=== PATIENT | female | born 1970 | race African-American/Black ===

== ENCOUNTER 2017-06-02 11:04 | Observation (INO) ==
[2017-06-02] MEDS ORDERED: NITROGLYCERIN 2% OINT 1 INCH/GM PACK TOP STA (11:58)
[2017-06-02] MEDS ORDERED: MORPHINE 2 MG/1 ML SYRINGE IV STA (11:58)
[2017-06-02] MEDS ORDERED: METOPROLOL TARTRATE 25 MG TABLET PO STA (11:58)
[2017-06-02] MEDS ORDERED: ONDANSETRON 4 MG/2 ML VIAL IV STA (11:58)
[2017-06-02] MEDS ORDERED: ALUM/MAG/SIMETH/LIDO VISC 1:1 30 ML BOTTLE PO STA (11:58)
[2017-06-02] MEDS ORDERED: ASPIRIN 325 MG TABLET PO STA (11:58)
--- NOTE | 2017-06-02 12:02 | EKG Report ---
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
--- NOTE | 2017-06-02 12:21 | XRay Report ---
XR chest 1V portable Indication: Chest pain Comparison: 26 March 2015 Findings: The heart and mediastinum are normal in size and configuration. The pulmonary vascularity is normal in caliber. No lung infiltrates, effusions, pneumothorax or other abnormality is demonstrated. Impression: No acute cardiopulmonary disease. PROCEDURE INTERPRETED AT [facility] DEPARTMENT OF RADIOLOGY Final Report Signed by: Dr. Sukhjinder Tinoco
--- NOTE | 2017-06-02 12:31 | CT Report ---
CT of the brain without contrast. Indication: Headache. Comparison: CT of the facial bones dated February 11, 2013. There is a mild partial empty sella. The ventricles are normal in size and configuration. There is no mass effect, midline shift, or area of hemorrhage. No cortical infarct is seen. There is a 7 mm fatty density within the right ambient cistern, having Hounsfield units of -65. Review of the previous CT of the facial bones shows this lesion to be present at that time, and has not changed in size, location, or contour. This is most consistent with a lipoma. Ruptured dermoid would not be expected to be in the exact same location and Hounsfield units of 10 to be higher than this. There is a 4 mm cystic lesion in the pineal gland. The calvarium is intact. 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 The mastoid air cells are clear. Impression: 1. 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 2. 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 The CT exam was performed using one or more of the following dose reduction techniques: Automated exposure control, adjustment of the mA and/or kV according to patient size, or use of iterative reconstruction technique. PROCEDURE INTERPRETED AT [facility] DEPARTMENT OF RADIOLOGY Final Report Signed by: Dr. Joy Benavidez
[2017-06-02 12:33] LABS: Basophils # 0.1 10*3/uL (0.0-0.2); Eosinophils # 0.2 10*3/uL (0.0-0.87); Eosinophils % 2.3 % (0.00-10.9); Hematocrit 39.2 VOL% (35.7-47.0); Hemoglobin 13.1 GM/DL (12.0-16.0); Immature Granulocytes % 0.3 %; Immature Granulocytes Absolute 0.02 #; Lymphocytes # 1.9 10*3/uL (1.4-4.0); Lymphocytes % 25.8 % (21.3-54.2); Mean Corpuscular HGB Conc 33.4 GM/DL (32-36); Mean Corpuscular Hemoglobin 29 PG (27-34); Mean Corpuscular Volume 87.1 FL (87-102); Mean Platelet Volume 9.8 FL (9.6-12.0); Monocytes # 0.6 10*3/uL (0.11-0.8); Monocytes % 8.3 % (1.7-12.7); Neutrophils # 4.5 10*3/uL (1.4-7.4); Neutrophils % 62.3 % (38.7-73.9); Platelet Count 379 T/CUMM (130-400); Red Cell Distribution Width 13.7 % (9.3-17.3); White Blood Count 7.2 T/CUMM (4-12)
[2017-06-02 12:41] LABS: Apearance,Urine CLOUDY (Clear); Bacteria,Urine Many /HPF (Few); Bilirubin,Urine Negative (Negative); Blood, Urine Small mg/dL (Negative); Glucose,Urine (UA) 50 mg/dL (Negative); Ketones,Urine Negative (Negative); Mucus,Urine Many /LPF (Occasional); Nitrite,Urine Positive (Negative); Protein,Urine Negative; RBC,Urine 8 /HPF (0-4); Squamous Epithelial Cell,Urine Occasional /HPF (0-10); Urine Color Yellow (Yellow); Urine Specific Gravity 1.018 (1.001-1.035); Urine Urobilinogen < 2.0 EU/DL (0.2-1.0); WBC,Urine 90 /HPF (0-6)
[2017-06-02] MEDS ORDERED: ONDANSETRON 4 MG/2 ML VIAL ONE (12:48)
[2017-06-02] MEDS ORDERED: NITROGLYCERIN 2% OINT 1 INCH/GM PACK TOP ONE (12:48)
[2017-06-02] MEDS ORDERED: ALUM/MAG/SIMETH/LIDO VISC 1:1 30 ML BOTTLE PO ONE (12:48)
[2017-06-02] MEDS ORDERED: ASPIRIN 325 MG TABLET ONE (12:48)
[2017-06-02] MEDS ORDERED: MORPHINE 2 MG/1 ML SYRINGE ONE (12:48)
[2017-06-02 13:12] LABS: Alanine Aminotransferase 22 U/L (13-56); Albumin 3.2 G/DL (3.4-5.0); Alkaline Phosphatase 107 U/L (45-117); Aspartate Amino Transferase 13 U/L (0-37); Bilirubin,Total < 0.39 MG/DL (0.2-1.0); Blood Urea Nitrogen 13 MG/DL (7-18); Glucose 211 MG/DL (74-106); Magnesium 1.5 MG/DL (1.8-2.4); Osmolality,Calculated 278.8 MOS/KG (273-304); Potassium 3.7 MMOL/L (3.5-5.1); Sodium 137 MMOL/L (136-145); Total Protein 7.6 G/DL (6.4-8.3)
[2017-06-02] MEDS ORDERED: cefTRIAXone 1,000 MG in SODIUM CHLORIDE 0.9% 100 ML IV STA (13:24)
[2017-06-02] MEDS ORDERED: MAGNESIUM SULF RIDER 2 GM in PREMIX 1 EACH IV STA (13:24)
--- NOTE | 2017-06-02 13:31 | Emergency Department Note ---
Jg Shoemaker Manpreet, am scribing for, and in the presence of, Al Rodas MD 11:46. Clark Shoemaker Charles R, MD, personally performed the services described in this documentation, ascribed by Chris Gregorio in my presence, and it is both accurate and complete 331 . Arrival - Arrival Chief Complaint: Chest Pain Stated Complaint: HEADACHE, BP HIGH. RT ARM PAIN RADIATING TO CHEST ED Nursing Triage Note: GAMEZ with right arm pain with radiation to chest onset x 1 month - pt states that she has been having elevated blood pressure at home Mode of Arrival: Ambulatory Limitations: No Limitations Source: Patient - History of Present Illness HPI Narrative: Pt is a 46 y/o female, with PMHx of HTN and NIDDM, who presents to the ED with CC of GAMEZ, right arm pain radiating to her chest onset 1 month. Pt also c/o elevated B/P lately. Pt states she checks her B/P when she is having GAMEZ which is usually high. Pt initially thought her arm pain was due to pulling a muscle. Pt states she called her this AM and told to come to the ED. Pt also reports of getting dizzy and tired. No other pains/complaints reported to the ED. Onset (ago): month(s) (1 month) Consistency: constant Severity: moderate Severity scale (1-10): 3 Date of Last Menstrual Period: 2 weeks Allergies/Adverse Reactions: Allergies Allergy/AdvReac Type Severity Reaction Status Date / Time No Known Allergies Allergy Verified 02/25/17 20:44 Home Medications: Home Medications Medication Instructions Recorded Confirmed Type Lisinopril 20 mg PO DAILY 03/26/15 02/25/17 History metFORMIN [Glucophage] 1,000 mg PO BID W/MEALS 02/25/17 02/25/17 History Review of System - Review of System 12 point system: reviewed and no additional remarkable complaints except as stated - Review of System Constitutional: Absent: chills, diaphoresis, fever Respiratory: Absent: cough, respiratory distress, wheezing Cardiovascular: Present: chest pain Gastrointestinal: Absent: abdominal pain, nausea, vomiting, diarrhea Genitourinary female: Absent: dysuria Musculoskeletal: Present: arm pain (Right arm pain). Absent: back pain Neurological: Present: headache Medical,Surgical,& Family Hx - Medical History Cardio: History of: Hypertension Endocrine: History of: Diabetes Mellitus (NIDDM) No history of: Diabetes Mellitus (IDDM) Respiratory: No history of: Asthma, Pneumonia Renal: No history of: Renal Failure, Renal Problems Gastrointestinal: No history of: Gastrointestinal Bleed, Liver Problems, GI Problems - Surgical History Abdominal Surgeries: Surgical HX of: Cholecystectomy Reproductive Surgeries: Surgical HX of;: Tubal Ligation - Family History Family History: Reports;: Family Diabetes (mother), Family Heart Disease (mother ), Family Hypertension (mother), Family Stroke (maternal grandmother) - Social History Smoking Status: Never smoker Frequency of Alcohol Use: None Type of Drug Use: None Exam Vital Signs: Vital Signs Temperature 98.1 F 06/02/17 11:10 Pulse Rate 67 06/02/17 11:34 Respiratory Rate 16 06/02/17 11:34 Blood Pressure 153/96 06/02/17 11:34 O2 Sat by Pulse Oximetry 99 06/02/17 11:34 - General General appearance: alert, in no apparent distress - Head Head exam: Present: atraumatic, normocephalic, normal inspection - Eye Eye exam: Present: normal appearance, PERRL, EOMI - ENT ENT exam: Present: normal exam, normal oropharynx, mucous membranes moist, TM's normal bilaterally - Neck Neck exam: Present: normal inspection, full ROM, trachea midline. Absent: thyromegaly - Chest Chest inspection: Present: normal inspection, symmetric chest wall rise. Absent : tenderness - Respiratory Respiratory exam: Present: normal lung sounds bilaterally. Absent: accessory muscle use, respiratory distress - Cardiovascular Cardiovascular exam: Present: regular rate, normal rhythm, normal heart sounds. Absent: murmur, rubs, gallop, clicks - Abdominal Exam Abdominal exam: Present: soft, normal bowel sounds. Absent: distention, tenderness, guarding - Extremities Exam Extremities exam: Present: normal inspection, full ROM. Absent: tenderness - Back Exam Back exam: Present: normal inspection, full ROM. Absent: tenderness - Neurological Exam Neurological exam: Present: alert, oriented X3, CN II-XII intact, reflexes normal - Psychiatric Psychiatric exam: Present: normal affect, normal mood - Skin Skin exam: Present: warm, dry, intact, normal color. Absent: pallor Course - Consultations Consultation #1: Hospitalist will admit patient Time: 13:28 Results - Labs CBC & BMP: 06/02/17 12:24 06/02/17 12:24 Lab Results: I have reviewed the patients labs Labs: Laboratory Tests 06/02/17 06/02/17 11:58 12:24 WBC 7.2 RBC 4.50 Hgb 13.1 Hct 39.2 MCV 87.1 MCH 29 MCHC 33.4 RDW 13.7 Plt Count 379 Baso % (Auto) 1.0 H Urine Color Yellow Urine Appearance Cloudy Urine pH 5.0 Ur Specific [place] 1.018 Urine Protein Negative Urine Glucose (UA) 50 Urine Ketones Negative Urine Blood Small Urine Nitrate Positive H Urine Bilirubin Negative Urine Urobilinogen < 2.0 H Urine Leukocytes Large H Urine RBC 8 Urine WBC 90 Urine WBC Clumps Few Ur Squamous Epith Cells Occasional Urine Bacteria Many Urine Mucus Many Ur Culture Indicated? Results to follow Laboratory Tests 06/02/17 12:24 Sodium 137 Potassium 3.7 Chloride 105 Carbon Dioxide 25 Anion Gap 10.7 GFR Calculation 105 Glucose 211 H Magnesium 1.5 L AST 13 Albumin 3.2 L Globulin 4.4 H Albumin/Globulin Ratio 0.7 L - Diagnostic Findings Procedure: Chest x-ray: report reviewed by me ("Chest X-ray: No acute cardiopulmonary disease."), CT: report reviewed by me ("CT Brain w/o con: 1. 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 2. Small cystic lesion within the pineal glad, pineal cystversus pineocytoma.") Disposition Clinical Impression: Chest pain, UTI (urinary tract infection), Headache, Hypomagnesemia, Essential hypertension Case discussed with: patient Disposition: Still a Patient Condition: Stable Time of Disposition: 13:28
[2017-06-02] MEDS ORDERED: cefTRIAXone 1,000 MG VIAL ONE (13:40)
--- NOTE | 2017-06-02 14:06 | Hospitalist History & Physical ---
Assessment and Plan - Time spent with patient Time spent with patient: Greater than 30 minutes (1) Chest pain Status: Acute Assessment and plan: Admit 06/02/17 - Tele Bed Increased BP; slight change in Troponin 0.021 Serial Troponin Serial EKG Will discuss with Dr Garrido for further recommendations with care. Current Visit: Yes (2) Essential hypertension Status: Acute Current Visit: Yes (3) UTI (urinary tract infection) Status: Acute Current Visit: Yes History of Present Illness Chief complaint: right arm and chest pain History of present illness: Ms. Valenzuela is a 46 year old black female presented to the ED for further evaluation of right arm pain that radiates to her right side chest and center with onset of 1 month ago and increased BP and increasing Fatigue x 1 week. She reports occasional dizziness. She denies nausea, vomiting, shortness of breath, fever, or chills. She denies pulling on anything or injuring arm/ shoulder. She denies reflux disease. IN ED: H&H WNL; Electrolytes WNL; Glucose 211, Magnesium 1.5, Troponin 0.021. Urinalysis positive for infection. CXR: nothing acute. Head CT: small cystic lesion within the pineal gland, pineal cyst vs pineocytoma; fatty density lesion in RT ambient cistern dating 2012,most likely lipoma. EKG reviewed by MD in ED; normal sinus rhythm. Denies smoking, alcohol use, or drug use. SURGHx: tubal ligation and cholecystectomy. 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 Home Medications Medication Instructions Recorded Confirmed Type metFORMIN [Glucophage] 1,000 mg PO BID W/MEALS 02/25/17 02/25/17 History Glimepiride [Glimepiride] 2 mg PO QAM 06/02/17 06/02/17 History Lisinopril/Hydrochlorothiazide 1 each PO QAM 06/02/17 06/02/17 History [Lisinopril-Hctz 20-12.5 mg Tab] Allergies Allergy/AdvReac Type Severity Reaction Status Date / Time No Known Allergies Allergy Verified 02/25/17 20:44 Medical,Surgical,& Family Hx - Medical History Cardio: History of: Hypertension Endocrine: History of: Diabetes Mellitus (NIDDM) No history of: Diabetes Mellitus (IDDM) Respiratory: No history of: Asthma, Pneumonia Renal: No history of: Renal Failure, Renal Problems Gastrointestinal: No history of: Gastrointestinal Bleed, Liver Problems, GI Problems - Surgical History Abdominal Surgeries: Surgical HX of: Cholecystectomy Reproductive Surgeries: Surgical HX of;: Tubal Ligation - Family History Family History: Reports;: Family Diabetes (mother), Family Heart Disease (mother ), Family Hypertension (mother), Family Stroke (maternal grandmother) - Social History Smoking Status: Never smoker Frequency of Alcohol Use: None Type of Drug Use: None Lives With:: Children (her son lives with her) Functional capacity: independent ambulation 12 point system: reviewed and no additional remarkable complaints except as stated - Constitutional Constitutional: Present: fatigue. Absent: chills, fever(s) - Cardiovascular Cardiovascular: Present: chest pain at rest, chest pain with activity. Absent: diaphoresis, dyspnea, dyspnea on exertion, edema - Respiratory Respiratory: Absent: cough, dyspnea, dyspnea on exertion Exam - Constitutional Vitals: Period Temp Pulse Resp BP Sys/Milligan Pulse Ox Last 24 Hr 98.1 F-98.1 F 67-73 16-20 130-166/80-109 98-100 General appearance: normal weight, no acute distress - Head Head exam: Present: normal inspection, normocephalic - Eye Eye exam: Present: EOMI Pupils: Present: JOSH - Neck Neck exam: Present: normal inspection. Absent: thyromegaly - Respiratory Respiratory exam: Present: clear to auscultation bilaterally. Absent: rhonchi, stridor, wheezes - Cardiovascular Cardiovascular exam: Present: regular rate and rhythm - GI/Abdominal GI/Abdominal exam: Present: normal bowel sounds, soft. Absent: tenderness, rebound - Extremities Exam Extremities exam: Present: normal inspection, full ROM. Absent: edema - Neurological Exam Neurological exam: Present: alert, oriented X3, CN II-XII intact - Psychiatric Psychiatric exam: Present: normal affect, normal mood. 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
[2017-06-02] MEDS ORDERED: ACETAMINOPHEN 325 MG TABLET PO PRN (14:23)
[2017-06-02] MEDS ORDERED: ONDANSETRON 4 MG/2 ML VIAL IV PRN (14:23)
[2017-06-02] MEDS ORDERED: GLUCAGON 1 MG VIAL IM PRN ×2 (14:23→16:19)
[2017-06-02] MEDS ORDERED: DEXTROSE 50% 25 GM/50 ML SYRINGE IV PRN ×2 (14:23→16:19)
--- NOTE | 2017-06-02 15:05 | EKG Report ---
Stationary ECG Study [facility] Test Date: 06/02/2017 3:03:57 PM Pat Name: ESTEVAN CANDELARIO Department: Room: 262 Gender: F Nematologist: KEVIN : 1970 Requested by: Al Sanders Order Number: [id number] Nixon MD: BERKLEY MARINO Intervals [place] Rate: 66 P: 49 [place]: 160 QRS: -16 QRSD: 96 T: 9 QT: 402 QTc: 415 Interpretive Statements SINUS RHYTHM MINIMAL VOLTAGE CRITERIA FOR LVH, CONSIDER NORMAL VARIANT Electronically Signed On 06-04-17 18:01:49 CDT by BERKLEY MARINO [email or web address]
[2017-06-02] MEDS: ENOXAPARIN 40 MG/0.4 ML SYRINGE SUBCUT SCH (15:52)
--- NOTE | 2017-06-02 16:08 | Cardiology Consult Note ---
Assessment and Plan - Time spent with patient Time spent with patient: Greater than 30 minutes (1) Right shoulder pain Status: Acute Assessment and plan: SEE PLAN OF CARE LISTED BELOW Current Visit: Yes (2) Left thyroid enlargement Status: Acute Assessment and plan: SEE PLAN OF CARE LISTED BELOW Current Visit: Yes (3) Fatigue Status: Acute Assessment and plan: SEE PLAN OF CARE LISTED BELOW Current Visit: Yes (4) Diabetes Status: Chronic Assessment and plan: SEE PLAN OF CARE LISTED BELOW Current Visit: Yes (5) Obesity (BMI 30-39.9) Status: Chronic Assessment and plan: SEE PLAN OF CARE LISTED BELOW Current Visit: Yes (6) Chest pain Status: Acute Assessment and plan: SEE PLAN OF CARE LISTED BELOW Current Visit: Yes (7) UTI (urinary tract infection) Status: Acute Assessment and plan: SEE PLAN OF CARE LISTED BELOW Current Visit: Yes (8) Hypomagnesemia Status: Acute Assessment and plan: SEE PLAN OF CARE LISTED BELOW Current Visit: Yes (9) Essential hypertension Status: Chronic Assessment and plan: SEE PLAN OF CARE LISTED BELOW Current Visit: Yes History of Present Illness - Data of Consult Patient: new to practice Consult date: 06/02/17 Requesting Physician: Marcus Garrido Primary care physician: Vivian Mcnair - Consult Narrative Reason for consult: right arm, shoulder, neck and chest pain History of present illness: 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 Valenzuela, 46 BF, with no known cardiac problems but risk factors significant for: hypertension, dyslipidemia, obesity, sedentary lifestyle. Patient presented to the emergency department for evaluation of right arm pain, right shoulder pain, right neck pain, right shoulder pain, fatigue. Patient reports this is been occurring for 1 week. She is tender to palpation in the right upper chest area, exquisitely tender to touch in the right sternocleidomastoid area with tight muscles noted. Range of motion to the right arm also causes some discomfort. She does not recall an injury creating the discomfort. Normally, she is fairly active without chest pain, heaviness or tightness. Cardiac biomarkers are negative, EKG is stable. She rates the discomfort as a 7 on a scale of 1-10, currently chest pain-free until palpation or movement performed. Of note, patient did have an injury to her left lower extremity over the summer 2016. Has been swelling for quite some time. It is recently improved. Will check a venous ultrasound to rule out DVT. She does have left lobular enlargement of her thyroid area and will check a thyroid ultrasound. For her musculoskeletal chest pain, treat with Neurontin, tramadol and acetaminophen. C -spine x-ray and right shoulder x-ray. We will continue to follow her cardiac biomarkers and EKG. At some point, she may benefit from an outpatient stress test and/or echocardiogram. Further discuss with Dr. Escamilla and await additional recommendations. IMPRESSION/PLAN: 1. CHEST PAIN - reproducible to palpation. Suspect this is musculoskeletal in nature. Treating accordingly. May benefit from outpatient stress test and/ or echocardiogram. 2. SHOULDER/ARM/NECK PAIN - shoulder x-ray and C-spine x-ray. See above for medications for treatment of discomfort 3. HYPERTENSION - usually well controlled on lisinopril/HCT. Will adjust medications accordingly during the hospital stay 4. DIABETES - patient has had recently poorly glucose levels. She would like diabetic teaching will consult nurse educator 5. OBESITY - reinforced the merits of weight loss 6. UTI - culture and sensitivity pending. Will defer treatment of choice to the attending 7. FATIGUE - most likely related to UTI. Will check TSH/T4. 8. UNKNOWN LIPID STATUS - 9. LEFT LOBULAR ENLARGEMENT NECK - thyroid ultrasound to evaluate left lobular enlargement. Check TSH 10. RECENT EDEMA LLE - venous ultrasound left lower extremity to evaluate for possible DVT 11. HYPOMAGNESEMIA - magnesium replacement protocol CC: Marcus Garrido MD - Home Medications and Allergies Home Medications: Home Medications Medication Instructions Recorded Confirmed Type metFORMIN [Glucophage] 500 mg PO BID W/MEALS 02/25/17 06/02/17 History Glimepiride [Glimepiride] 2 mg PO QAM 06/02/17 06/02/17 History Lisinopril/Hydrochlorothiazide 1 each PO QAM 06/02/17 06/02/17 History [Lisinopril-Hctz 20-12.5 mg Tab] Allergies/Adverse Reactions: Allergies Allergy/AdvReac Type Severity Reaction Status Date / Time No Known Allergies Allergy Verified 02/25/17 20:44 Review of systems: REVIEW OF SYSTEMS: - Constitutional Constitutional: Present: Fatigue. Absent: syncope, anorexia, night sweats - EENT Eyes: Absent: blurry vision, loss of vision, diplopia Ears: Absent: decreased hearing, ear pain, ear discharge - Cardiovascular Cardiovascular: Present: chest pain with movement and palpation. Denies dyspnea on exertion. Recent edema left lower extremity. Denies palpitations Respiratory Respiratory: Denies: STEWART, cough. Absent: wheezing, hemoptysis, change in phlegm color - Gastrointestinal Gastrointestinal: Denies: constipation. Absent: abdominal pain, hematemesis, hematochezia, melena, change in bowel habits, nausea - Genitourinary Genitourinary: Absent: difficulty urinating, dysuria, urinary hesitancy, flank pain - Musculoskeletal Musculoskeletal: Present: back pain, neck pain, right shoulder pain, right arm pain. Absent: joint swelling, muscle cramps, muscle weakness - Neurological Neurological: Present: normal gait without frequent falls. Absent: dizziness, hemiparesis - Psychiatric Psychiatric: Absent: anxiety, depression, difficulty concentrating - Endocrine Endocrine: Present: fatigue. Absent: cold intolerance, heat intolerance, polyuria, polyphagia, polydipsia - Hematologic/Lymphatic Hematologic/Lymphatic: Present: easy bruising. Absent: easy bleeding -Integumentary Integumentary: Absent: lesions, rashes, skin breakdown Medical,Surgical,& Family Hx - Medical History Cardio: History of: Hypertension No history of: Cardiac Dysrhythmia, CHF, CAD, CA Endocrine: History of: Diabetes Mellitus (NIDDM) No history of: Diabetes Mellitus (IDDM) Respiratory: No history of: Asthma, Pneumonia Renal: No history of: Renal Failure, Renal Problems Gastrointestinal: No history of: Gastrointestinal Bleed, Liver Problems, GI Problems - Surgical History Abdominal Surgeries: Surgical HX of: Cholecystectomy Reproductive Surgeries: Surgical HX of;: Tubal Ligation - Family History Family History: Reports;: Family Diabetes (mother), Family Heart Disease (mother ), Family Hypertension (mother), Family Stroke (maternal grandmother) - Social History Smoking Status: Never smoker Have you smoked in the last 12 months: No Frequency of Alcohol Use: None Type of Drug Use: None Functional capacity: independent ambulation Physical Examination Vital Signs Temp Pulse Resp BP Pulse Ox 98.1 F 69 20 166/109 100 06/02/17 11:10 06/02/17 11:10 06/02/17 11:10 06/02/17 11:10 06/02/17 11:10 Exam: General: [Appears well with no apparent distress.] [Pleasant and cooperative. ] [Appears comfortable.] HEENT: [PERRL, normocephalic, atraumatic. Mucous membranes moist. No jaundice noted. Conjunctiva moist and clear, sclerae anicteric] Neck: Unable to assess for JVD due to habitus. Left lobular enlargement of the neck. No carotid bruit appreciated Cardiac: [Regular rate and rhythm.] [No obvious murmur, rub or gallop.] Lungs: [Clear to auscultation without accessory muscle use to assist the respiratory pattern.] Tender to touch in the right upper and mid chest area. Not requiring oxygen. Abdomen: Soft, bowel sounds normoactive. Nontender and nondistended. No abdominal bruit or thrill noted. No masses noted. Musculoskeletal: Right sternocleidomastoid muscle taut, muscle spasms noted in several areas, tender to palpation and massage. Right arm reveals joint pain at the shoulder area with range of motion Extremities: No clubbing, cyanosis noted. [Trace left lower extremity edema noted.] Upper extremity pulses 2+. Lower extremity pulses 2+. Capillary refill less than 3 seconds. Skin: No unusual lesions or rashes. No skin breakdown appreciated. Neuro: Awake, alert and oriented 3. Moves all extremities well without hemiparesis or paralysis. No essential tremor is appreciated. Result/EKG - Labs CBC & BMP: 06/02/17 12:24 06/02/17 12:24 Lab Results: I have reviewed the past 24 hour labs Labs: Laboratory Results - last 24 hr 06/02/17 06/02/17 06/02/17 11:58 12:24 12:24 WBC RBC Hgb Hct MCV MCH MCHC RDW Plt Count MPV Neut % (Auto) Lymph % (Auto) [place] % (Auto) Eos % (Auto) Baso % (Auto) Neut # (Auto) Lymph # (Auto) [place] # (Auto) Eos # (Auto) Baso # (Auto) Immature Gran % Nucleated RBC % Immature Gran # Nucleated RBCs # Immature Plt Fraction Sodium 137 Potassium 3.7 Chloride 105 Carbon Dioxide 25 Anion Gap 10.7 BUN 13 Creatinine 0.90 GFR Calculation 105 BUN/Creatinine Ratio 14.00 Glucose 211 H POC Glucose Calculated Osmolality 278.8 Calcium 9.0 Magnesium 1.5 L Total Bilirubin < 0.39 AST 13 ALT 22 Alkaline Phosphatase 107 Troponin I B-Natriuretic Peptide < 2 L Total Protein 7.6 Albumin 3.2 L Globulin 4.4 H Albumin/Globulin Ratio 0.7 L Lipase 122.0 Urine Color Yellow Urine Appearance Cloudy Urine pH 5.0 Ur Specific [place] 1.018 Urine Protein Negative Urine Glucose (UA) 50 Urine Ketones Negative Urine Blood Small Urine Nitrate Positive H Urine Bilirubin Negative Urine Urobilinogen < 2.0 H Urine Leukocytes Large H Urine RBC 8 Urine WBC 90 Urine WBC Clumps Few Ur Squamous Epith Cells Occasional Urine Bacteria Many Urine Mucus Many Ur Culture Indicated? Results to follow 06/02/17 06/02/17 06/02/17 12:24 12:24 15:35 WBC 7.2 RBC 4.50 Hgb 13.1 Hct 39.2 MCV 87.1 MCH 29 MCHC 33.4 RDW 13.7 Plt Count 379 MPV 9.8 Neut % (Auto) 62.3 Lymph % (Auto) 25.8 [place] % (Auto) 8.3 Eos % (Auto) 2.3 Baso % (Auto) 1.0 H Neut # (Auto) 4.5 Lymph # (Auto) 1.9 [place] # (Auto) 0.6 Eos # (Auto) 0.2 Baso # (Auto) 0.1 Immature Gran % 0.3 Nucleated RBC % 0.0 Immature Gran # 0.02 Nucleated RBCs # 0.00 Immature Plt Fraction 0.0 Sodium Potassium Chloride Carbon Dioxide Anion Gap BUN Creatinine GFR Calculation BUN/Creatinine Ratio Glucose POC Glucose 195 H Calculated Osmolality Calcium Magnesium Total Bilirubin AST ALT Alkaline Phosphatase Troponin I 0.021 B-Natriuretic Peptide Total Protein Albumin Globulin Albumin/Globulin Ratio Lipase Urine Color Urine Appearance Urine pH Ur Specific [place] Urine Protein Urine Glucose (UA) Urine Ketones Urine Blood Urine Nitrate Urine Bilirubin Urine Urobilinogen Urine Leukocytes Urine RBC Urine WBC Urine WBC Clumps Ur Squamous Epith Cells Urine Bacteria Urine Mucus Ur Culture Indicated? - Diagnostic Findings Procedure: Chest x-ray: report reviewed by me - EKG EKG results: interpreted by me EKG shows: sinus rhythm
--- NOTE | 2017-06-02 16:46 | Ultrasound Report ---
Bilateral lower extremity venous Doppler with hernandez scale, Spectral Doppler and color-flow analysis performed and interpreted. Indication: Edema Scanning over both common femoral veins, superficial femoral veins, greater saphenous veins and popliteal veins demonstrates normal compressibility, color flow, and augmentation. Impression: No evidence of DVT seen in either lower extremity. The Ultrasound images were captured and stored. PROCEDURE INTERPRETED AT [facility] DEPARTMENT OF RADIOLOGY Final Report Signed by: Dr. Joy Benavidez
--- NOTE | 2017-06-02 16:48 | Ultrasound Report ---
Thyroid ultrasound. Indication: Enlargement of the left lobe. No previous study. The right lobe of the thyroid gland measures 4.3 x 1.8 x 1.6 cm. The left lobe measures 3.7 x 1.7 x 1.6 cm. The parenchyma is heterogeneous, and there is increased blood flow to each gland. There is a 2 x 3 mm hypodense solid nodule at the lower pole of the right lobe. Impression: Enlarged gland, with heterogeneity of the parenchyma and hyperreninemia. This could indicate thyroiditis. Small subcentimeter well-defined solid nodule at the lower pole of the right lobe. The Ultrasound images were captured and stored. PROCEDURE INTERPRETED AT [facility] DEPARTMENT OF RADIOLOGY Final Report Signed by: Dr. Joy Benavidez
[2017-06-02] MEDS: GABAPENTIN 100 MG CAPSULE PO SCH ×2 (17:20→21:58)
[2017-06-02] MEDS: traMADol 50 MG TABLET PO SCH ×2 (17:21→22:03)
[2017-06-02] MEDS: INSULIN LISPRO 100 UNIT/ML SUBCUT SCH ×2 (17:21→21:59)
[2017-06-02] MEDS: ACETAMINOPHEN 500 MG TABLET PO SCH ×2 (17:21→22:02)
--- NOTE | 2017-06-02 17:33 | XRay Report ---
XR shoulder 2V RT; XR cervical spine AP/LAT Clinical Information: right shoulder pain, neck pain Comparison: None Findings: Right shoulder joint is intact. There is no evidence of acute fracture or dislocation. The acromioclavicular joint also appears intact with minimal degenerative changes. There is no focal soft tissue normality. Cervical spine vertebral body heights and alignment appear within normal limits. Intervertebral disc spaces appear preserved. There is no acute fracture or subluxation. Prevertebral soft tissues appear within normal limits. There is no suspicious osseous or soft tissue abnormality identified. Impression: No acute radiographic abnormality in the right shoulder. Very mild degenerative changes. No acute fracture or subluxation in the cervical spine. PROCEDURE INTERPRETED AT [facility] DEPARTMENT OF RADIOLOGY Final Report Signed by: Jose Ring
--- NOTE | 2017-06-02 19:02 | CT Report ---
CT of the cervical spine without intravenous contrast. Indication: Right arm pain. The normal curvature of the cervical spine is demonstrated. 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 There is mild posterior disc bulging and posterior osteophyte formation at C4-C5. No evidence of fracture or facet dislocation. No lytic or blastic lesion. Impression: Mild to moderate spondylitic change at C4-C5. The CT exam was performed using one or more of the following dose reduction techniques: Automated exposure control, adjustment of the mA and/or kV according to patient size, or use of iterative reconstruction technique. PROCEDURE INTERPRETED AT [facility] DEPARTMENT OF RADIOLOGY Final Report Signed by: Dr. Joy Benavidez
[2017-06-03 04:48] LABS: Basophils # 0.1 10*3/uL (0.0-0.2); Basophils % 0.9 % (0.0-0.8); Eosinophils # 0.3 10*3/uL (0.0-0.87); Eosinophils % 4.2 % (0.00-10.9); Hemoglobin 11.5 GM/DL (12.0-16.0); Immature Granulocytes % 0.1 %; Immature Granulocytes Absolute 0.01 #; Lymphocytes # 2.8 10*3/uL (1.4-4.0); Lymphocytes % 37.1 % (21.3-54.2); Mean Corpuscular HGB Conc 31.9 GM/DL (32-36); Mean Corpuscular Hemoglobin 28 PG (27-34); Mean Corpuscular Volume 88.7 FL (87-102); Mean Platelet Volume 10.3 FL (9.6-12.0); Monocytes # 0.7 10*3/uL (0.11-0.8); Neutrophils # 3.7 10*3/uL (1.4-7.4); Neutrophils % 48.7 % (38.7-73.9); Platelet Count 353 T/CUMM (130-400); Red Blood Count 4.06 MC/CUMM (3.8-5.5); Red Cell Distribution Width 13.9 % (9.3-17.3); White Blood Count 7.5 T/CUMM (4-12)
[2017-06-03 06:02] LABS: Calcium 8.7 MG/DL (8.5-10.1); Magnesium 1.7 MG/DL (1.8-2.4); Osmolality,Calculated 285.5 MOS/KG (273-304); Potassium 4.2 MMOL/L (3.5-5.1); Risk Ratio 2.52; VLDL CHOLESTEROL 9.2 MG/DL
--- NOTE | 2017-06-03 06:28 | EKG Report ---
Stationary ECG Study 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
--- NOTE | 2017-06-03 07:39 | EKG Report ---
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
[2017-06-03] MEDS: GABAPENTIN 100 MG CAPSULE PO SCH ×2 (08:31→15:05)
[2017-06-03] MEDS: traMADol 50 MG TABLET PO SCH (08:32)
[2017-06-03] MEDS: INSULIN LISPRO 100 UNIT/ML SUBCUT SCH ×2 (08:32→12:59)
[2017-06-03] MEDS: ACETAMINOPHEN 500 MG TABLET PO SCH (08:32)
[2017-06-03] MEDS ORDERED: LISINOPRIL/HCTZ 20-12.5 MG TABLET PO SCH (09:00)
[2017-06-03] MEDS ORDERED: PANTOPRAZOLE 40 MG TABLET PO SCH (09:00)
[2017-06-03] MEDS ORDERED: GLIMEPIRIDE 2 MG TABLET PO SCH (09:00)
--- NOTE | 2017-06-03 09:25 | Cardiology Progress Note ---
Assessment and Plan - Time spent with patient Time spent with patient: Greater than 30 minutes (1) Right shoulder pain Status: Acute Assessment and plan: SEE PLAN OF CARE LISTED BELOW Current Visit: Yes (2) Fatigue Status: Acute Assessment and plan: SEE PLAN OF CARE LISTED BELOW Current Visit: Yes (3) Diabetes Status: Chronic Assessment and plan: SEE PLAN OF CARE LISTED BELOW Current Visit: Yes (4) Obesity (BMI 30-39.9) Status: Chronic Assessment and plan: SEE PLAN OF CARE LISTED BELOW Current Visit: Yes (5) Chest pain Status: Acute Assessment and plan: SEE PLAN OF CARE LISTED BELOW Current Visit: Yes (6) UTI (urinary tract infection) Status: Acute Assessment and plan: SEE PLAN OF CARE LISTED BELOW Current Visit: Yes (7) Hypomagnesemia Status: Acute Assessment and plan: SEE PLAN OF CARE LISTED BELOW Current Visit: Yes (8) Essential hypertension Status: Chronic Assessment and plan: SEE PLAN OF CARE LISTED BELOW Current Visit: Yes (9) Abnormal thyroid ultrasound Status: Acute Assessment and plan: SEE PLAN OF CARE LISTED BELOW Current Visit: Yes Cardiology - PN: Subj Interval history: SHOWPLACE MANAGER: DR. ESCAMILLA (NEW) SUMMARY: Ms. Valenzuela, 46 BF, with no known cardiac problems but risk factors significant for: hypertension, dyslipidemia, obesity, sedentary lifestyle. Admitted June 02, 2017 with complaints of right arm pain, right shoulder pain, right neck pain, right chest pain. Cardiology was consulted for evaluation of said pain. Patient's cardiac biomarkers negative, EKG unremarkable. She was treated for musculoskeletal pain and this is improved overnight. Venous ultrasound revealed no evidence of DVT. Thyroid ultrasound revealed an abnormality and I will further defer workup to Dr. Garrido's team. CT of cervical spine revealed mild to moderate spondylitic changes at C4-C5. From a cardiology standpoint, we will sign off. I will schedule an outpatient follow-up with Dr. Escamilla to assess for cardiac needs. Thank you for this consultation. IMPRESSION/PLAN: 1. CHEST PAIN - musculoskeletal in nature. C-spine CT reveals mild to moderate spondylitic changes at C4-C5. Improved with Neurontin, Tramadol and Acetaminophen. 2. SHOULDER/ARM/NECK PAIN - x-ray showed reveals only mild degenerative changes. Pain improved overnight with medical treatment. 3. HYPERTENSION - well controlled on Lisinopril/HCT. 4. DIABETES - patient has had recently poorly glucose levels. clinical trial educator is currently at the bedside teaching. 5. OBESITY - reinforced the merits of weight loss 6. UTI - culture and sensitivity pending. Will defer treatment of choice to the attending 7. FATIGUE - most likely related to UTI. TSH/T4 within normal limits 8. UNKNOWN LIPID STATUS -FLP checked this morning. LDL 95. Risk factors are diabetes. She is currently at goal. 9. ABNORMAL THYROID ULTRASOUND - possible thyroiditis, solid nodule at the left pole of the right lobe. Defer additional workup or management to attending. 10. RECENT EDEMA LLE - venous ultrasound revealed no DVT 11. HYPOMAGNESEMIA - we will add routine oral magnesium replacement. Exam (Progress Note) - Constitutional Vitals: Period Temp Pulse Resp BP Sys/Milligan Pulse Ox Last 24 Hr 96.8 F-98.3 F 57-78 16-20 99-167/53-109 94-100 Exam: Exam: General: [Appears well with no apparent distress.] [Pleasant and cooperative. ] [Appears comfortable.] HEENT: [PERRL, normocephalic, atraumatic. Mucous membranes moist. No jaundice noted. Conjunctiva moist and clear, sclerae anicteric] Neck: Unable to assess for JVD due to habitus. Left lobular enlargement of the neck. No carotid bruit appreciated Cardiac: [Regular rate and rhythm.] [No obvious murmur, rub or gallop.] Lungs: [Clear to auscultation without accessory muscle use to assist the respiratory pattern.] Tender to touch in the right upper and mid chest area. Not requiring oxygen. Abdomen: Soft, bowel sounds normoactive. Nontender and nondistended. No abdominal bruit or thrill noted. No masses noted. Musculoskeletal: Right sternocleidomastoid muscle taut, muscle spasms noted in several areas, tender to palpation and massage. Right arm reveals joint pain at the shoulder area with range of motion Extremities: No clubbing, cyanosis noted. [Trace left lower extremity edema noted.] Upper extremity pulses 2+. Lower extremity pulses 2+. Capillary refill less than 3 seconds. Skin: No unusual lesions or rashes. No skin breakdown appreciated. Neuro: Awake, alert and oriented 3. Moves all extremities well without hemiparesis or paralysis. No essential tremor is appreciated. Result/EKG - Labs CBC & BMP: 06/03/17 03:17 06/03/17 03:17 Lab Results: I have reviewed the past 24 hour labs Labs: Laboratory Results - last 24 hr 06/02/17 06/02/17 06/02/17 11:58 12:24 12:24 WBC RBC Hgb Hct MCV MCH MCHC RDW Plt Count MPV Neut % (Auto) Lymph % (Auto) [place] % (Auto) Eos % (Auto) Baso % (Auto) Neut # (Auto) Lymph # (Auto) [place] # (Auto) Eos # (Auto) Baso # (Auto) Immature Gran % Nucleated RBC % Immature Gran # Nucleated RBCs # Immature Plt Fraction Sodium 137 Potassium 3.7 Chloride 105 Carbon Dioxide 25 Anion Gap 10.7 BUN 13 Creatinine 0.90 GFR Calculation 105 BUN/Creatinine Ratio 14.00 Glucose 211 H POC Glucose Hemoglobin A1c Calculated Osmolality 278.8 Calcium 9.0 Magnesium 1.5 L Total Bilirubin < 0.39 AST 13 ALT 22 Alkaline Phosphatase 107 Troponin I B-Natriuretic Peptide < 2 L Total Protein 7.6 Albumin 3.2 L Globulin 4.4 H Albumin/Globulin Ratio 0.7 L Triglycerides Cholesterol LDL Cholesterol VLDL Cholesterol HDL Cholesterol Heart Disease Risk Ratio Lipase 122.0 Free T4 TSH 3rd Generation Urine Color Yellow Urine Appearance Cloudy Urine pH 5.0 Ur Specific [place] 1.018 Urine Protein Negative Urine Glucose (UA) 50 Urine Ketones Negative Urine Blood Small Urine Nitrate Positive H Urine Bilirubin Negative Urine Urobilinogen < 2.0 H Urine Leukocytes Large H Urine RBC 8 Urine WBC 90 Urine WBC Clumps Few Ur Squamous Epith Cells Occasional Urine Bacteria Many Urine Mucus Many Ur Culture Indicated? Results to follow 06/02/17 06/02/17 06/02/17 12:24 12:24 15:18 WBC 7.2 RBC 4.50 Hgb 13.1 Hct 39.2 MCV 87.1 MCH 29 MCHC 33.4 RDW 13.7 Plt Count 379 MPV 9.8 Neut % (Auto) 62.3 Lymph % (Auto) 25.8 [place] % (Auto) 8.3 Eos % (Auto) 2.3 Baso % (Auto) 1.0 H Neut # (Auto) 4.5 Lymph # (Auto) 1.9 [place] # (Auto) 0.6 Eos # (Auto) 0.2 Baso # (Auto) 0.1 Immature Gran % 0.3 Nucleated RBC % 0.0 Immature Gran # 0.02 Nucleated RBCs # 0.00 Immature Plt Fraction 0.0 Sodium Potassium Chloride Carbon Dioxide Anion Gap BUN Creatinine GFR Calculation BUN/Creatinine Ratio Glucose POC Glucose Hemoglobin A1c Calculated Osmolality Calcium Magnesium Total Bilirubin AST ALT Alkaline Phosphatase Troponin I 0.021 0.022 B-Natriuretic Peptide Total Protein Albumin Globulin Albumin/Globulin Ratio Triglycerides Cholesterol LDL Cholesterol VLDL Cholesterol HDL Cholesterol Heart Disease Risk Ratio Lipase Free T4 TSH 3rd Generation Urine Color Urine Appearance Urine pH Ur Specific [place] Urine Protein Urine Glucose (UA) Urine Ketones Urine Blood Urine Nitrate Urine Bilirubin Urine Urobilinogen Urine Leukocytes Urine RBC Urine WBC Urine WBC Clumps Ur Squamous Epith Cells Urine Bacteria Urine Mucus Ur Culture Indicated? 06/02/17 06/02/17 06/02/17 15:18 15:18 15:35 WBC RBC Hgb Hct MCV MCH MCHC RDW Plt Count MPV Neut % (Auto) Lymph % (Auto) [place] % (Auto) Eos % (Auto) Baso % (Auto) Neut # (Auto) Lymph # (Auto) [place] # (Auto) Eos # (Auto) Baso # (Auto) Immature Gran % Nucleated RBC % Immature Gran # Nucleated RBCs # Immature Plt Fraction Sodium Potassium Chloride Carbon Dioxide Anion Gap BUN Creatinine GFR Calculation BUN/Creatinine Ratio Glucose POC Glucose 195 H Hemoglobin A1c Calculated Osmolality Calcium Magnesium Total Bilirubin AST ALT Alkaline Phosphatase Troponin I B-Natriuretic Peptide Total Protein Albumin Globulin Albumin/Globulin Ratio Triglycerides Cholesterol LDL Cholesterol VLDL Cholesterol HDL Cholesterol Heart Disease Risk Ratio Lipase Free T4 0.87 TSH 3rd Generation 0.456 Urine Color Urine Appearance Urine pH Ur Specific [place] Urine Protein Urine Glucose (UA) Urine Ketones Urine Blood Urine Nitrate Urine Bilirubin Urine Urobilinogen Urine Leukocytes Urine RBC Urine WBC Urine WBC Clumps Ur Squamous Epith Cells Urine Bacteria Urine Mucus Ur Culture Indicated? 06/02/17 06/02/17 06/03/17 17:42 18:36 03:17 WBC 7.5 RBC 4.06 Hgb 11.5 L Hct 36.0 MCV 88.7 MCH 28 MCHC 31.9 L RDW 13.9 Plt Count 353 MPV 10.3 Neut % (Auto) 48.7 Lymph % (Auto) 37.1 [place] % (Auto) 9.0 Eos % (Auto) 4.2 Baso % (Auto) 0.9 H Neut # (Auto) 3.7 Lymph # (Auto) 2.8 [place] # (Auto) 0.7 Eos # (Auto) 0.3 Baso # (Auto) 0.1 Immature Gran % 0.1 Nucleated RBC % 0.0 Immature Gran # 0.01 Nucleated RBCs # 0.00 Immature Plt Fraction 0.0 Sodium Potassium Chloride Carbon Dioxide Anion Gap BUN Creatinine GFR Calculation BUN/Creatinine Ratio Glucose POC Glucose 167 H Hemoglobin A1c Calculated Osmolality Calcium Magnesium Total Bilirubin AST ALT Alkaline Phosphatase Troponin I 0.020 B-Natriuretic Peptide Total Protein Albumin Globulin Albumin/Globulin Ratio Triglycerides Cholesterol LDL Cholesterol VLDL Cholesterol HDL Cholesterol Heart Disease Risk Ratio Lipase Free T4 TSH 3rd Generation Urine Color Urine Appearance Urine pH Ur Specific [place] Urine Protein Urine Glucose (UA) Urine Ketones Urine Blood Urine Nitrate Urine Bilirubin Urine Urobilinogen Urine Leukocytes Urine RBC Urine WBC Urine WBC Clumps Ur Squamous Epith Cells Urine Bacteria Urine Mucus Ur Culture Indicated? 06/03/17 06/03/17 06/03/17 03:17 03:17 03:17 WBC RBC Hgb Hct MCV MCH MCHC RDW Plt Count MPV Neut % (Auto) Lymph % (Auto) [place] % (Auto) Eos % (Auto) Baso % (Auto) Neut # (Auto) Lymph # (Auto) [place] # (Auto) Eos # (Auto) Baso # (Auto) Immature Gran % Nucleated RBC % Immature Gran # Nucleated RBCs # Immature Plt Fraction Sodium 139 Potassium 4.2 Chloride 105 Carbon Dioxide 30 Anion Gap 8.2 BUN 15 Creatinine 1.00 GFR Calculation 92 BUN/Creatinine Ratio 15.00 Glucose 236 H POC Glucose Hemoglobin A1c 9.3 H Calculated Osmolality 285.5 Calcium 8.7 Magnesium 1.7 L Total Bilirubin AST ALT Alkaline Phosphatase Troponin I B-Natriuretic Peptide 4 Total Protein Albumin Globulin Albumin/Globulin Ratio Triglycerides 46 Cholesterol 179 LDL Cholesterol 95.0 VLDL Cholesterol 9.2 HDL Cholesterol 71 H Heart Disease Risk Ratio 2.52 Lipase Free T4 TSH 3rd Generation Urine Color Urine Appearance Urine pH Ur Specific [place] Urine Protein Urine Glucose (UA) Urine Ketones Urine Blood Urine Nitrate Urine Bilirubin Urine Urobilinogen Urine Leukocytes Urine RBC Urine WBC Urine WBC Clumps Ur Squamous Epith Cells Urine Bacteria Urine Mucus Ur Culture Indicated? 06/03/17 06/03/17 03:17 07:50 WBC RBC Hgb Hct MCV MCH MCHC RDW Plt Count MPV Neut % (Auto) Lymph % (Auto) [place] % (Auto) Eos % (Auto) Baso % (Auto) Neut # (Auto) Lymph # (Auto) [place] # (Auto) Eos # (Auto) Baso # (Auto) Immature Gran % Nucleated RBC % Immature Gran # Nucleated RBCs # Immature Plt Fraction Sodium Potassium Chloride Carbon Dioxide Anion Gap BUN Creatinine GFR Calculation BUN/Creatinine Ratio Glucose POC Glucose 209 H Hemoglobin A1c Calculated Osmolality Calcium Magnesium Total Bilirubin AST ALT Alkaline Phosphatase Troponin I 0.028 B-Natriuretic Peptide Total Protein Albumin Globulin Albumin/Globulin Ratio Triglycerides Cholesterol LDL Cholesterol VLDL Cholesterol HDL Cholesterol Heart Disease Risk Ratio Lipase Free T4 TSH 3rd Generation Urine Color Urine Appearance Urine pH Ur Specific [place] Urine Protein Urine Glucose (UA) Urine Ketones Urine Blood Urine Nitrate Urine Bilirubin Urine Urobilinogen Urine Leukocytes Urine RBC Urine WBC Urine WBC Clumps Ur Squamous Epith Cells Urine Bacteria Urine Mucus Ur Culture Indicated? - Diagnostic Findings Procedure: CT: report reviewed by me, Ultrasound: report reviewed by me - EKG EKG results: interpreted by me EKG shows: sinus rhythm Specialty Discharge - Follow Up or Referrals Follow up with: Pavel Escamilla MD [Physician] - (4-6 weeks. EKG)
[2017-06-03] MEDS ORDERED: MAGNESIUM OXIDE 400 MG TABLET PO SCH (09:30)
[2017-06-03 12:13] VITALS: BP 104/59
--- NOTE | 2017-06-03 14:29 | Discharge Summary ---
Hospital Course - Hospital Course Hospital Course: The patient was admitted to the hospital with right shoulder discomfort and radicular pain. The pain was atypical for coronary artery disease. CT scan of neck revealed C2 nerve impingement due to degenerative changes. The patient is safe for discharge home and follow-up with Vivian Mcnair her primary care provider. Should the pain be persistent she should consider neurosurgical evaluation. On the date of discharge the chest is clear and abdomen soft. Heart has regular rate and rhythm. Patient medications were reconciled upon admission, and again at the time of discharge. The patient was screened for tobacco use and found to be a never smoker The patient's medical decsion maker is themself, and when asked, they asked to be Full code. Discharge Time was 31 minutes, including final examination, evaluation and planning, education, reconciliation of medications, writing prescriptions, coordinating care with case resolution specialist, and preparing discharge documentation. - Time spent with patient Time with patient DS: Greater than 30 minutes Diagnosis - Discharge Diagnosis (1) Cervical radicular pain Status: Chronic (2) Right shoulder pain Status: Resolved Specialty Discharge - Follow Up or Referrals Follow up with: Pavel Haywood MD [Physician] - (4-6 weeks. EKG) Discharge Plan - Discharge Data Disposition: Disch To Home/Self Care Condition at Discharge: Stable Discharge Diet: advance to your usual diet Activity: resume usual activities as tolerated - Discharge Medications New [place]apentin Cap/Tab [Neurontin Cap/Tab] 100 mg PO TID #100 capsule HYDROcodone/ACETAMIN 5-325 [[place] 5-325] 1 tablet PO Q8HR PRN #30 tablet PRN Reason: Pain Mild To Moderate (1-7) cephALEXin [Keflex] 500 mg PO TID #15 capsule Continue Glimepiride 2 mg PO QAM metFORMIN [Glucophage] 500 mg PO BID W/MEALS Lisinopril/Hydrochlorothiazide [Lisinopril-Hctz 20-12.5 mg Tab] 1 each PO QAM - Follow Up or Referral Follow Up: Pavel Haywood MD [Physician] - (4-6 weeks. EKG) - Forms/Instructions Exam - Constitutional Vitals: Period Temp Pulse Resp BP Sys/Milligan Pulse Ox Last 24 Hr 96.8 F-97.6 F 57-78 18-18 99-153/53-99 94-100 Discharge Results Procedures and tests throughout hospitalization: Pending Orders 06/02/17 Urine Culture Routine Labs on day of discharge: Labs from last 24 hours 06/03/17 06/03/17 06/03/17 11:37 07:50 03:17 WBC RBC Hgb Hct MCV MCH MCHC RDW Plt Count MPV Neut % (Auto) Lymph % (Auto) [place] % (Auto) Eos % (Auto) Baso % (Auto) Neut # (Auto) Lymph # (Auto) [place] # (Auto) Eos # (Auto) Baso # (Auto) Immature Gran % Nucleated RBC % Immature Gran # Nucleated RBCs # Immature Plt Fraction Sodium Potassium Chloride Carbon Dioxide Anion Gap BUN Creatinine GFR Calculation BUN/Creatinine Ratio Glucose POC Glucose 223 H 209 H Hemoglobin A1c Calculated Osmolality Calcium Magnesium Troponin I 0.028 B-Natriuretic Peptide Triglycerides Cholesterol LDL Cholesterol VLDL Cholesterol HDL Cholesterol Heart Disease Risk Ratio Free T4 TSH 3rd Generation 06/03/17 06/03/17 06/03/17 03:17 03:17 03:17 WBC RBC Hgb Hct MCV MCH MCHC RDW Plt Count MPV Neut % (Auto) Lymph % (Auto) [place] % (Auto) Eos % (Auto) Baso % (Auto) Neut # (Auto) Lymph # (Auto) [place] # (Auto) Eos # (Auto) Baso # (Auto) Immature Gran % Nucleated RBC % Immature Gran # Nucleated RBCs # Immature Plt Fraction Sodium 139 Potassium 4.2 Chloride 105 Carbon Dioxide 30 Anion Gap 8.2 BUN 15 Creatinine 1.00 GFR Calculation 92 BUN/Creatinine Ratio 15.00 Glucose 236 H POC Glucose Hemoglobin A1c 9.3 H Calculated Osmolality 285.5 Calcium 8.7 Magnesium 1.7 L Troponin I B-Natriuretic Peptide 4 Triglycerides 46 Cholesterol 179 LDL Cholesterol 95.0 VLDL Cholesterol 9.2 HDL Cholesterol 71 H Heart Disease Risk Ratio 2.52 Free T4 TSH 3rd Generation 06/03/17 06/02/17 06/02/17 03:17 18:36 17:42 WBC 7.5 RBC 4.06 Hgb 11.5 L Hct 36.0 MCV 88.7 MCH 28 MCHC 31.9 L RDW 13.9 Plt Count 353 MPV 10.3 Neut % (Auto) 48.7 Lymph % (Auto) 37.1 [place] % (Auto) 9.0 Eos % (Auto) 4.2 Baso % (Auto) 0.9 H Neut # (Auto) 3.7 Lymph # (Auto) 2.8 [place] # (Auto) 0.7 Eos # (Auto) 0.3 Baso # (Auto) 0.1 Immature Gran % 0.1 Nucleated RBC % 0.0 Immature Gran # 0.01 Nucleated RBCs # 0.00 Immature Plt Fraction 0.0 Sodium Potassium Chloride Carbon Dioxide Anion Gap BUN Creatinine GFR Calculation BUN/Creatinine Ratio Glucose POC Glucose 167 H Hemoglobin A1c Calculated Osmolality Calcium Magnesium Troponin I 0.020 B-Natriuretic Peptide Triglycerides Cholesterol LDL Cholesterol VLDL Cholesterol HDL Cholesterol Heart Disease Risk Ratio Free T4 TSH 3rd Generation 06/02/17 06/02/17 06/02/17 15:35 15:18 15:18 WBC RBC Hgb Hct MCV MCH MCHC RDW Plt Count MPV Neut % (Auto) Lymph % (Auto) [place] % (Auto) Eos % (Auto) Baso % (Auto) Neut # (Auto) Lymph # (Auto) [place] # (Auto) Eos # (Auto) Baso # (Auto) Immature Gran % Nucleated RBC % Immature Gran # Nucleated RBCs # Immature Plt Fraction Sodium Potassium Chloride Carbon Dioxide Anion Gap BUN Creatinine GFR Calculation BUN/Creatinine Ratio Glucose POC Glucose 195 H Hemoglobin A1c Calculated Osmolality Calcium Magnesium Troponin I B-Natriuretic Peptide Triglycerides Cholesterol LDL Cholesterol VLDL Cholesterol HDL Cholesterol Heart Disease Risk Ratio Free T4 0.87 TSH 3rd Generation 0.456 06/02/17 15:18 WBC RBC Hgb Hct MCV MCH MCHC RDW Plt Count MPV Neut % (Auto) Lymph % (Auto) [place] % (Auto) Eos % (Auto) Baso % (Auto) Neut # (Auto) Lymph # (Auto) [place] # (Auto) Eos # (Auto) Baso # (Auto) Immature Gran % Nucleated RBC % Immature Gran # Nucleated RBCs # Immature Plt Fraction Sodium Potassium Chloride Carbon Dioxide Anion Gap BUN Creatinine GFR Calculation BUN/Creatinine Ratio Glucose POC Glucose Hemoglobin A1c Calculated Osmolality Calcium Magnesium Troponin I 0.022 B-Natriuretic Peptide Triglycerides Cholesterol LDL Cholesterol VLDL Cholesterol HDL Cholesterol Heart Disease Risk Ratio Free T4 TSH 3rd Generation Preliminary micro results at discharge 06/02/17 Unknown Urine Culture - Preliminary Urine,Clean Catch Gram Negative Rods DS: Provider Date of admission: 06/02/17 13:32 Primary care physician: . No PCP Attending physician on admission: Marcus Garrido MD Consults: 06/02/17 14:25 Consult to Case Mgmt/Social Srvs [CONS] Routine Reason for Case Mgmt/Social Srvs: Discharge Planning 06/02/17 14:40 Consult to Physician [CONS] Routine Comment: chest pain Consulting Provider: Pavel Haywood 06/02/17 16:15 Consult to [facility], Educator [CONS] Routine Reason for Founder And Ceo: Diet Discharging clinician: Marcus Garrido MD
[2017-06-03] MEDS: ENOXAPARIN 40 MG/0.4 ML SYRINGE SUBCUT SCH (15:05)
== END 2017-06-03 15:10 | disposition home or self-care (01) ==
LOC: N.ED 11:04 → N.EDINP 11:04 → N.TELES 13:59
PROVIDERS: ADMIT Internal Medicine; ATTEND Internal Medicine